=== PATIENT | male | born 1975 | race Caucasian/White ===

== ENCOUNTER 2018-08-01 10:43 | Emergency (ER) | payer OTHER ==
--- NOTE | 2018-08-01 11:02 | EDPHY ---
H & P Stated Complaint: left and mid sternal chest pain, bilateral arm tingling Time Seen by Provider: 08/01/18 10:57 HPI/ROS: CHIEF COMPLAINT: Chest pain HISTORY OF PRESENT ILLNESS: The patient presents the emergency department after he developed some left anterior chest pain at work at approximately 10:00 a.m. This morning. Symptoms lasted for 15 min then resolved. The patient has no prior history of chest pain however has had very mild episodic palpitations over the past year. The patient does run. He has no symptoms of chest pain or shortness of breath with exertion. The patient denies any asymmetric calf pain or swelling. The patient denies additional acute complaints. Patient has no risk factors for coronary artery disease. There is no history of smoking. The patient denies any history of fever, cough or congestion. He denies additional acute complaints. REVIEW OF SYSTEMS: A comprehensive 10 point review of systems is otherwise negative aside from elements mentioned in the history of present illness. Source: Patient Exam Limitations: No limitations - Personal History Current Tetanus/Diphtheria Vaccine: Yes Current Tetanus Diphtheria and Acellular Pertussis (TDAP): Yes - Medical/Surgical History Hx Asthma: No Hx Chronic Respiratory Disease: No Hx Diabetes: No Hx Cardiac Disease: No Hx Renal Disease: No Hx Cirrhosis: No Hx Alcoholism: No Hx HIV/AIDS: No Hx Splenectomy or Spleen Trauma: No Other PMH: history of heart palpitations - Social History Smoking Status: Never smoked - Physical Exam Exam: General Appearance: Alert, no distress Eyes: Pupils equal and round no pallor or injection ENT, Mouth: Mucous membranes moist Respiratory: There are no retractions, lungs are clear to auscultation Cardiovascular: Regular rate and rhythm Gastrointestinal: Abdomen is soft and nontender, no masses, bowel sounds normal Neurological: A&O, normal motor function, normal sensory exam, normal cranial nerves Skin: Warm and dry, no rashes Musculoskeletal: Neck is supple nontender Extremities: symmetrical, full range of motion Constitutional: Initial Vital Signs Temperature (C) 36.4 C 08/01/18 10:46 Heart Rate 76 08/01/18 10:46 Respiratory Rate 18 08/01/18 10:46 Blood Pressure 156/87 H 08/01/18 10:46 O2 Sat (%) 96 08/01/18 10:46 O2 Delivery Mode Room Air Allergies/Adverse Reactions: No Known Allergies Allergy (Unverified 08/01/18 10:46) Home Medications: Medication Instructions Recorded NK [No Known Home Meds] 08/01/18 Medical Decision Making - Diagnostics EKG Interpretation: EKG: Complete interpretation has been separately recorded in the [employer] archive. Summary impression: Sinus rhythm, rate 76 Imaging Results: Imaging Impressions Chest X-Ray 08/01/18 11:02 Impression: No acute pulmonary disease. ED Course/Re-evaluation: Patient presents to the ED after an episode of resolved chest pain. The patient has no risk factors for coronary artery disease. The patient's EKG demonstrates no evidence of ischemia. The patient had serial troponins in the emergency department which were normal. The patient underwent a treadmill stress test in the emergency department. Patient underwent a treadmill stress test which was reviewed by the cardiology team as demonstrating no evidence of ischemia. I re-evaluated the patient at 3:00 p.m.. I reviewed the results of his workup. He has been discharged home with customary aftercare instructions and return precautions. Differential Diagnosis: Differential diagnosis considered includes esophageal spasm, pericarditis, acute coronary syndrome, myocardial infarction, pneumothorax - Data Points Laboratory Results: Laboratory Results 08/01/18 11:00 08/01/18 11:00 08/01/18 08/01/18 08/01/18 12:55 11:00 11:00 WBC 6.38 10^3/uL 10^3/uL (3.80-9.50) RBC 4.91 10^6/uL 10^6/uL (4.40-6.38) Hgb 15.8 g/dL g/dL (13.7-17.5) Hct 46.1 % % (40.0-51.0) MCV 93.9 fL fL (81.5-99.8) MCH 32.2 pg pg (27.9-34.1) MCHC 34.3 g/dL g/dL (32.4-36.7) RDW 12.9 % % (11.5-15.2) Plt Count 215 10^3/uL 10^3/uL (150-400) MPV 10.3 fL fL (8.7-11.7) Neut % (Auto) 59.7 % % (39.3-74.2) Lymph % (Auto) 28.8 % % (15.0-45.0) Lawrence % (Auto) 7.1 % % (4.5-13.0) Eos % (Auto) 3.0 % % (0.6-7.6) Baso % (Auto) 0.6 % % (0.3-1.7) Nucleat RBC Rel Count 0.0 % % (0.0-0.2) Absolute Neuts (auto) 3.81 10^3/uL 10^3/uL (1.70-6.50) Absolute Lymphs (auto) 1.84 10^3/uL 10^3/uL (1.00-3.00) Absolute Monos (auto) 0.45 10^3/uL 10^3/uL (0.30-0.80) Absolute Eos (auto) 0.19 10^3/uL 10^3/uL (0.03-0.40) Absolute Basos (auto) 0.04 10^3/uL 10^3/uL (0.02-0.10) Absolute Nucleated RBC 0.00 10^3/uL 10^3/uL (0-0.01) Immature Gran % 0.8 % % (0.0-1.1) Immature Gran # 0.05 10^3/uL 10^3/uL (0.00-0.10) Sodium 138 mEq/L mEq/L (135-145) Potassium 4.0 mEq/L mEq/L (3.5-5.2) Chloride 104 mEq/L mEq/L (97-110) Carbon Dioxide 27 mEq/l mEq/l (22-31) Anion Gap 7 mEq/L mEq/L (6-14) BUN 15 mg/dL mg/dL (7-23) Creatinine 0.9 mg/dL mg/dL (0.7-1.3) Estimated GFR > 60 Glucose 118 mg/dL H mg/dL (70-100) Calcium 9.1 mg/dL mg/dL (8.5-10.4) POC Troponin I 0.00 ng/mL ng/mL (0.00-0.08) Troponin I < 0.012 ng/mL ng/mL (0.000-0.034) 08/01/18 10:59 WBC RBC Hgb Hct MCV MCH MCHC RDW Plt Count MPV Neut % (Auto) Lymph % (Auto) Lawrence % (Auto) Eos % (Auto) Baso % (Auto) Nucleat RBC Rel Count Absolute Neuts (auto) Absolute Lymphs (auto) Absolute Monos (auto) Absolute Eos (auto) Absolute Basos (auto) Absolute Nucleated RBC Immature Gran % Immature Gran # Sodium Potassium Chloride Carbon Dioxide Anion Gap BUN Creatinine Estimated GFR Glucose Calcium POC Troponin I 0.00 ng/mL ng/mL (0.00-0.08) Troponin I Point of Care Test Results: Chemistry 08/01/18 08/01/18 12:55 10:59 POC Troponin I 0.00 ng/mL ng/mL 0.00 ng/mL ng/mL (0.00-0.08) (0.00-0.08) Departure - Departure Disposition: Home, Routine, Self-Care Clinical Impression: Chest pain Condition: Good Instructions: Chest Pain (ED) Additional Instructions: 1. The testing done in the emergency department today demonstrates no significant abnormality. 2. I do recommend scheduling a follow-up appointment with primary care. 3. Please return to the ED for any recurrent chest pain, shortness of breath, difficulty breathing or other concerns. 4. Please follow up with the [facility]pler radioactive waste you have been referred to for any ongoing mild symptoms. Referrals: Jay Weinstein MD [Medical Doctor] - As per Instructions
[2018-08-01 11:09] LABS: PLATELET COUNT 215 10^3/uL (150-400)
--- NOTE | 2018-08-01 11:40 | CPEKG ---
Test Reason : OPEN Blood Pressure : / mmHG Vent. Rate : 076 BPM Atrial Rate : 077 BPM P-R Int : 171 ms QRS Dur : 095 ms QT Int : 379 ms P-R-T Axes : 044 067 027 degrees QTc Int : 427 ms Sinus rhythm Confirmed by Michael Perla ([id number]) on 08/01/2018 11:39:45 AM Referred By: Michael Perla Confirmed By:Michael Perla
[2018-08-01 15:17] VITALS: BP 132/87
--- NOTE | 2018-08-01 19:32 | CPR ---
[f rep st] NONINVASIVE CARDIAC PROCEDURE REPORT DATE OF PROCEDURE: 08/01/2018 PROCEDURE: Exercise treadmill test. INDICATION: The patient is a 43-year-old male who presented to the hospital with central chest press ure, which occurred while sitting at work. He then developed some shortness of breath and numbness of his arms. He denies any history of hypertension, hyperlipidemia, diabetes, or tobacco use. He does h ave a family history of coronary artery disease with his maternal grandfather having a fatal PR in hi s 40s. PROCEDURE: Consent was obtained and the patient was placed on continuous telemetry. His resting EKG revealed normal sinus rhythm with heart rate of 69. There were no ST-T wave changes to suggest ischem ia. The patient exercised on the treadmill for 12 minutes without any associated symptoms. He remaine d in normal sinus rhythm throughout the study. He did have PVCs with initial exercise, which improved with exercise. He had nonspecific ST changes with upsloping ST depression of 0.5 to 1 mm. His blood pressure at rest was 140/82 and peaked at 192/68. His blood pressure returned to baseline 5 minutes i nto recovery. PLAN: Low risk exercise treadmill test. /[id number]/MODL
== END 2018-08-01 15:17 | disposition home or self-care (01) ==
DX: R07.9 Chest pain, unspecified (principal)
CPT/HCPCS: 84484-ER